=== PATIENT | female | born 1955 ===

== ENCOUNTER 2016-12-05 07:17 | Emergency (ER) | payer BC ==
--- NOTE | 2016-12-05 08:36 | UC ---
Dinh Renee Aidan, scribed for Savanna Butterfield DO on 12/05/16 at 0809 . Complaint Female HPI - HPI Summary HPI Summary: 60 y/o female presents to the Urgent Care with a complaint of acute, moderate episodes burning during urination that began last night. Associated symptoms include urgency and increased frequency. She suspects she has a UTI. Pts last UTI occurred last March. She has had roughly 4-5 UTIs in her life time. She denies having any changes in the odor of her urine, fever, chills, back pain, flank pain, sore throat, ear ache, eye goop, or SOB. No allergies to medication. - History Of Current Complaint Chief Complaint: UCGU Stated Complaint: BURNING URINATION Time Seen by Provider: 12/05/16 07:25 Hx Obtained From: Patient Hx Last Menstrual Period: 2011 ?: No Onset/Duration: Sudden Onset, Lasting Hours - since last night, Still Present Timing: Intermittent - during urination Severity Initially: Moderate Severity Currently: None Pain Intensity: 0 - Pt currently does not have symptoms Pain Scale Used: 0-10 Numeric Radiates to: No Character: Burning Aggravating Factor(s): Nothing - unknown Alleviating Factor(s): Nothing - unknown Associated Signs And Symptoms: Negative: Negative - increased urgency and frequency - Allergies/Home Medications Allergies/Adverse Reactions: Allergies Allergy/AdvReac Type Severity Reaction Status Date / Time No Known Allergies Allergy Verified 12/05/16 07:38 Home Medications: Home Medications Alprazolam [Alprazolam Odt] 0.25 mg PO 12/05/16 [History] Levothyroxine TAB* [Synthroid TAB*] 25 mcg PO 0800 12/05/16 [History Confirmed 12/05/16] Simvastatin TAB(NF) [Zocor(NF)] 20 mg PO 1700 12/05/16 [History Confirmed ] busPIRone TAB* [Buspar TAB *] 15 mg PO 12/05/16 [History] PMH/Surg Hx/FS Hx/Imm Hx Endocrine History Of: Reports: Thyroid Disease - underactive Denies: Diabetes Cardiovascular History Of: Denies: Cardiac Disorders, Hypertension Respiratory History Of: Denies: COPD, Asthma GI/ History Of: Reports: Diverticulitis - and perforated colon Denies: Ulcer - Surgical History Surgical History: Yes Surgery Procedure, Year, and Place: 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 aug 2014 perforated colon. oct 2015 ankel surgery - Family History Known Family History: Positive: Hypertension Negative: Cardiac Disease, Diabetes - Social History Occupation: Employed Full-time Lives: With Family Alcohol Use: Weekly Substance Use Type: None Smoking Status (MU): Never Smoked Tobacco - Immunization History Most Recent Influenza Vaccination: fall 2015 Review of Systems Constitutional: Negative Skin: Negative Eyes: Negative ENT: Negative Respiratory: Negative Cardiovascular: Negative Gastrointestinal: Negative Genitourinary: Dysuria - burning, Hematuria - blood found in urine, Frequency, Urgency Motor: Negative Neurovascular: Negative Musculoskeletal: Negative Neurological: Negative Psychological: Negative All Other Systems Reviewed And Are Negative: Yes Physical Exam Triage Information Reviewed: Yes Appearance: Well-Appearing, No Pain Distress, Well-Nourished Vital Signs: Initial Vital Signs Temp 97.9 F 12/05/16 07:26 Pulse 77 12/05/16 07:26 Resp 16 12/05/16 07:26 BP 157/102 12/05/16 07:26 Pulse Ox 98 12/05/16 07:26 Vital Signs Reviewed: Yes Eyes: Positive: Conjunctiva Clear. Negative: Discharge ENT: Positive: Hearing grossly normal. Negative: Muffled/hoarse voice Neck exam: Normal Neck: Positive: Supple Respiratory: Positive: Lungs clear, Normal breath sounds, No respiratory distress, No accessory muscle use Cardiovascular: Positive: RRR, No Murmur Abdomen Description: Positive: Nontender, Soft. Negative: CVA Tenderness (R), CVA Tenderness (L), Distended, Guarding Bowel Sounds: Positive: Present Musculoskeletal Exam: Normal Neurological: Positive: Alert, Muscle Tone Normal Psychological Exam: Normal Psychological: Positive: Age Appropriate Behavior Skin Exam: Normal, Other - warm, dry, normal color Complaint Female Dx - Course Course Of Treatment: This is a 60 y/o female with a chief complaint of burning during urination, increased frequency, and uirgency. Sx began last night and have persisted. - Differential Dx/Diagnosis Differential Diagnosis/HQI/PQRI: Urinary Tract Infection Provider Diagnoses: uti, hematuria Discharge - Discharge Plan Condition: Stable Disposition: HOME Prescriptions: Nitrofurantoin Monohyd Macro [Macrobid] 100 mg PO BID #14 cap Phenazopyridine TAB* [Pyridium TAB*] 200 mdi PO TID PRN #6 tab PRN Reason: Pain Patient Education Materials: Urinary Tract Infection in Women (ED), Hematuria ( ED) Referrals: No Primary Care Phys,NOPCP [Primary Care Provider] - (FOLLOW UP IN 2 DAYS WITH YOUR PCP, DR LEONARDO, IF NOT IMPROVING. OTHERWISE FOLLOW UP IN 2 WEEKS.) Additional Instructions: NITROFURANTOIN: You have received a prescription for nitrofurantoin (Macrodantin). This antibiotic is used for urinary tract infections. Persons with G-6-PD (glucose 6-phosphate dehydrogenase) deficiency should not take this medication. Women who are or nursing should notify the physician before taking this medicine. If you have ever had a problem caused by this medication in the past, be sure the physician is aware of it. Common side effects of this medicine include nausea, vomiting, or decreased appetite. Notify your physician if these side effects become severe. Immediately stop this medicine and call the physician if you develop cough , shortness of breath, chest pain, weakness, jaundice (yellow color of the skin and whites of the eyes), or a skin rash. ANY TIME YOU TAKE AN ANTIBIOTIC, IT IS IMPORTANT TO REPLENISH THE BODY'S BALANCE OF "GOOD" BACTERIA BY EATING HIGH QUALITY CULTURED FOOD SUCH YOGURT, SAURKRAUT OR MIRIAM CHI AND/OR TAKING A PROBIOTIC SUPPLEMENT. The documentation as recorded by the Dinh chapa Aidan accurately reflects the service I personally performed and the decisions made by me, Savanna Butterfield DO.
== END 2016-12-05 08:13 | disposition home or self-care (01) ==
LOC: UCEAST 07:17
DX: N39.0 Urinary tract infection, site not specified (principal); R31.9 Hematuria, unspecified; E03.9 Hypothyroidism, unspecified
CPT/HCPCS: 81003; 87077; 87086; 87186; 99202; G0463